=== PATIENT | female | born 1940 ===

== ENCOUNTER 2017-01-30 11:49 | Emergency (ER) | payer MEDICAID, MEDICARE, OTHER ==
[2017-01-30] MEDS ORDERED: Acetaminophen TAB* 325 MG PO ONE (12:12)
--- NOTE | 2017-01-30 12:23 | UC ---
HPI Febrile Illness - HPI Summary HPI Summary: She has had a fever and cough for 5 days. Today she is particularly weak and almost passed out this morning. She has diffuse myalgias. NO known hx of lung disease. - History of Current Complaint Chief Complaint: UCGeneralIllness Time Seen by Provider: 01/30/17 12:04 Hx Obtained From: Patient, Family/Claim Clinician Onset/Duration: Started Days Ago Timing: Constant, Lasting Days Initial Severity: Moderate Current Severity: Severe Aggravating Factors: Other: - walking makes symptoms worse. Alleviating Factors: Nothing Associated Signs and Symptoms: Chills, Cough, Dizziness, Myalgia, Weakness - Allergy/Home Medications Allergies/Adverse Reactions: Allergies Allergy/AdvReac Type Severity Reaction Status Date / Time Codeine Allergy Vomiting Verified 01/30/17 12:12 Home Medications: Home Medications Ascorbic Acid TAB* [Vitamin C TAB*] 500 mg PO DAILY 01/30/17 [History Confirmed 01/30/17] Ferrous Sulfate [Iron (Ferrous Sulfate)] 50 mg PO DAILY 01/30/17 [History Confirmed 01/30/17] Losartan TAB* [Cozaar TAB*] 50 mg PO DAILY 01/30/17 [History Confirmed 01/30/17] Metoprolol Tartrate TAB* [Lopressor TAB*] 25 mg PO BID 01/30/17 [History Confirmed 01/30/17] metFORMIN* [Glucophage 500 MG TAB *] 500 mg PO BID 01/30/17 [History Confirmed 01/30/17] PMH/Surg Hx/FS Hx/Imm Hx Endocrine/Hematology History: Reports: Hx Diabetes, Hx Thyroid Disease Cardiovascular History: Reports: Hx Hypertension - Cancer History Cancer Type, Location and Year: THyroid CA - Surgical History Surgery Procedure, Year, and Place: thryoidectomy. appendectomy Infectious Disease History: No Infectious Disease History: Denies: Traveled Outside the [place] in Last 30 Days - Family History Known Family History: Negative: Respiratory Disease - Social History Alcohol Use: None Substance Use Type: Reports: None Smoking Status (MU): Never Smoked Tobacco Review of Systems All Other Systems Reviewed And Are Negative: Yes Physical Exam Triage Information Reviewed: Yes Appearance: Ill-Appearing, Thin Vital Signs: Initial Vital Signs Temp 101.6 F 01/30/17 12:03 Pulse 104 01/30/17 12:03 Resp 24 04/14/17 12:03 BP 128/66 01/30/17 12:03 Pulse Ox 96 01/30/17 12:03 Vital Signs Reviewed: Yes Eye Exam: Normal Neck exam: Normal Neck: Positive: Supple, Nontender, No Lymphadenopathy Respiratory: Positive: No respiratory distress, Decreased breath sounds, Rhonchi Cardiovascular: Positive: No Murmur, Tachycardia Abdominal Exam: Normal Abdomen Description: Positive: Nontender Musculoskeletal: Negative: No Edema Neurological: Positive: Alert, Fatigued Psychological: Positive: Normal Response To Family Skin Exam: Normal Skin: Negative: rashes Diagnostics - Laboratory Diagnostic Studies Completed/Ordered: ekg- st depression in lateral leads. - EKG Cardiac Rate: Tachycardia Cardiac Rhythm: Sinus: Normal Course/Dx - Course Assessment/Plan: SIRS positive with likely pneumonia which would suggest sepsis. WE will transfer to ED for further workup and possible admission. EKG shows strain pattern and she has hx of GA. - Febrile Illness Differential Diagnoses: Bacteremia, Endocarditis, Fever of Unknown Origin, Meningitis, Sepsis - Diagnoses Clinic Provider Diagnoses: sepsis. weakness. near syncope. abnormal ekg. cough. fever. Discharge - Discharge Plan Condition: Guarded Disposition: TRANS HIGHER LVL OF CARE FAC Referrals: Gifty Couch [Primary Care Provider] - Additional Instructions: Please report directly to the [place] emergency room as we discussed.
== END 2017-01-30 12:25 | disposition short-term general hospital (02) ==
LOC: UCCORT 11:49
DX: A41.9 Sepsis, unspecified organism (principal); R53.1 Weakness; R55 Syncope and collapse; R94.31 Abnormal electrocardiogram [ECG] [EKG]; R05 Cough; R50.9 Fever, unspecified; Z88.5 Allergy status to narcotic agent; E11.9 Type 2 diabetes mellitus without complications; E07.9 Disorder of thyroid, unspecified; I10 Essential (primary) hypertension; Z85.850 Personal history of malignant neoplasm of thyroid
CPT/HCPCS: 93005; 99203; A9270-GY; G0463